=== PATIENT | female | born 1940 | race Caucasian/White ===

== ENCOUNTER 2016-09-13 13:16 | Outpatient (CLI) | payer OTHER ==
--- NOTE | 2016-09-13 14:52 | DIAGNOSTIC IMAGING REPORT ---
PROCEDURE: US BILATERAL CAROTID DOPPLER INDICATION: LT CAROTID BRUIT TECHNIQUE: Color Doppler duplex imaging of the carotid and vertebral vessels. COMPARISON: None. FINDINGS: Mild to moderate plaque formation of the bifurcations bilaterally. Vessels are patent. Right common carotid artery peak systolic velocity 50 cm/second. Right internal carotid artery peak systolic velocity 85 cm/second. Right external carotid artery peak systolic velocity 119 cm/second. Right bsdjrvcz-rq-ozpsgl carotid artery ratio 1.7 Right vertebral artery peak systolic velocity 30 cm/second antegrade. Left common carotid artery peak systolic velocity 43 cm/second. Left internal carotid artery peak systolic velocity 130 cm/second. Left external carotid artery peak systolic velocity 97 cm/second. Left jnpyzplj-qj-syufwt carotid artery ratio 3.0 Left vertebral artery peak systolic velocity 40 cm/second antegrade. IMPRESSION: 1. 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 Right ICA 16-49% stenosis 3. Left ICA 50-69% stenosis Velocity criteria are extrapolated from diameter data as defined by the Society of Rad[employer]ologists in Ultrasound Consensus Conference, Radiology 2003; 229; 340-346.
--- NOTE | 2016-09-13 14:52 | DIAGNOSTIC IMAGING REPORT ---
PROCEDURE: US BILATERAL CAROTID DOPPLER INDICATION: LT CAROTID BRUIT TECHNIQUE: Color Doppler duplex imaging of the carotid and vertebral vessels. COMPARISON: None. FINDINGS: Mild to moderate plaque formation of the bifurcations bilaterally. Vessels are patent. Right common carotid artery peak systolic velocity 50 cm/second. Right internal carotid artery peak systolic velocity 85 cm/second. Right external carotid artery peak systolic velocity 119 cm/second. Right lspjapzv-my-ajmcgh carotid artery ratio 1.7 Right vertebral artery peak systolic velocity 30 cm/second antegrade. Left common carotid artery peak systolic velocity 43 cm/second. Left internal carotid artery peak systolic velocity 130 cm/second. Left external carotid artery peak systolic velocity 97 cm/second. Left utczwpkc-zj-mjrtpz carotid artery ratio 3.0 Left vertebral artery peak systolic velocity 40 cm/second antegrade. IMPRESSION: 1. 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 Right ICA 16-49% stenosis 3. Left ICA 50-69% stenosis Velocity criteria are extrapolated from diameter data as defined by the [employer] of [employer]iologists in Ultrasound Consensus Conference, Radiology 2003; 229; 340-346.
== END 2016-09-13 23:00 | disposition home or self-care (01) ==
LOC: US SRH 13:16
DX: I65.23 Occlusion and stenosis of bilateral carotid arteries (principal)